=== PATIENT | male | born 1980 | race Caucasian/White ===

== ENCOUNTER 2018-09-01 13:33 | Emergency (ER) | payer OTHER, BC ==
[2018-09-01] MEDS ORDERED: PrednisoLONE 15 mg/5 ml Oral Syrup (240 ml) PO STA (14:25)
[2018-09-01] MEDS ORDERED: Artificial Tears Opht Soln OS PRN (14:28)
--- NOTE | 2018-09-01 14:28 | ED PDOC ---
HPI: General Adult Time Seen by Provider: 09/01/18 14:03 Chief Complaint (Nursing): Weakness/Neurological Deficit Chief Complaint (Provider): left facial swelling History Per: Patient History/Exam Limitations: no limitations Onset/Duration Of Symptoms: Days (x3) Current Symptoms Are (Timing): Still Present Additional Complaint(s): Alexei Alcantara is a 38 year old male, with no significant past medical history, who presents to the emergency department complaining of left facial swelling, itchy ear and trouble closing his left eye onset for x3 days. Patient states x5 days ago he began having pain to his left jaw, he saw a dentist who told him he might have a wisdom tooth coming in. He also reports a minimal headache but denies any visual changes, arm or leg numbness or weakness. No further medical complaints. PMD: Dr. Bryn Nicole Past Medical History Reviewed: Historical Data, Nursing Documentation, Vital Signs Vital Signs: Last Vital Signs Temp 98.1 F 09/01/18 13:36 Pulse 114 H 09/01/18 13:36 Resp 18 09/01/18 13:36 BP 136/77 09/01/18 13:36 Pulse Ox 99 09/01/18 13:36 - Medical History PMH: No Chronic Diseases - Surgical History Surgical History: No Surg Hx - Family History Family History: States: Unknown Family Hx - Social History Current smoker - smoking cessation education provided: No Alcohol: None Drugs: Denies - Home Medications Home Medications: Ambulatory Orders Medication Instructions Recorded Prednisolone [Millipred] 25 mg PO BID #95 tablet 09/01/18 Valacyclovir HCl [Valtrex] 1 gm PO TID #30 tablet 09/01/18 - Allergies Allergies/Adverse Reactions: Allergies Allergy/AdvReac Type Severity Reaction Status Date / Time No Known Allergies Allergy Verified 09/01/18 14:13 Review of Systems ROS Statement: Except As Marked, All Systems Reviewed And Found Negative Eyes: Negative for: Vision Change ENT: Positive for: Mouth Pain (left jaw), Other (left facial swelling, itchy ear and trouble closing left eye) Neurological: Positive for: Headache (minimal). Negative for: Weakness (arm or leg), Numbness (arm or leg) Physical Exam - Reviewed Nursing Documentation Reviewed: Yes Vital Signs Reviewed: Yes - Physical Exam Appears: Positive for: No Acute Distress Head Exam: Positive for: ATRAUMATIC, NORMAL INSPECTION, NORMOCEPHALIC Skin: Positive for: Normal Color, Warm, Dry Eye Exam: Positive for: EOMI, PERRL, Conjunctival injection (minimal to left eye) ENT: Positive for: TM Is/Are (normal), Other (No facial lesions) Neck: Positive for: Normal, Painless ROM, Supple Cardiovascular/Chest: Positive for: Regular Rate, Rhythm. Negative for: Murmur Respiratory: Positive for: Normal Breath Sounds. Negative for: Respiratory Distress Gastrointestinal/Abdominal: Positive for: Normal Exam, Soft. Negative for: Tenderness, Guarding, Rebound Back: Positive for: Normal Inspection. Negative for: L CVA Tenderness, R CVA Tenderness, Vertebral Tenderness Extremity: Positive for: Normal ROM (Upper and lower extremities). Negative for: Deformity, Swelling Neurologic/Psych: Positive for: Alert, high school football coach II-XII (intact), Oriented (x3), Cerebellar Tests (normal), Facial Droop (left facial droop with forehead affected). Negative for: Motor/Sensory Deficits, Aphasia - ECG O2 Sat by Pulse Oximetry: 99 (RA) Pulse Ox Interpretation: Normal Medical Decision Making Medical Decision Making: Time: 14:03 Initial Impression: Initial Plan: --Head w/o contras [CT] --Reevaluation 15:[address] FINDINGS: HEMORRHAGE: No intracranial hemorrhage. BRAIN: No mass effect or edema. No atrophy or chronic microvascular ischemic changes. VENTRICLES: Unremarkable. No hydrocephalus. CALVARIUM: Unremarkable. PARANASAL SINUSES: Unremarkable as visualized. No significant inflammatory changes. MASTOID AIR CELLS: Unremarkable as visualized. No inflammatory changes. OTHER FINDINGS: None. IMPRESSION: No acute intracranial abnormalities. No significant findings to account for the clinical presentation. ----- Scribe Attestation: Documented by Vazquez Giles, acting as a scribe for Zahida Healy MD. Provider Scribe Attestation: All medical record entries made by the Scribe were at my direction and personally dictated by me. I have reviewed the chart and agree that the record accurately reflects my personal performance of the history, physical exam, medical decision making, and the department course for this patient. I have also personally directed, reviewed, and agree with the discharge instructions and disposition. Disposition - Clinical Impression Clinical Impression: Al's palsy - Disposition Referrals: Ofelia Hunter MD [Medical Doctor] - Disposition Time: 16:30 Condition: STABLE Additional Instructions: FOLLOW-UP WITH PMD WITHIN 2 DAYS FOR REEVALUATION. USE EYE LUBRICANT NEEDED. Prescriptions: Prednisolone [Millipred] 25 mg PO BID #95 tablet Valacyclovir HCl [Valtrex] 1 gm PO TID #30 tablet Instructions: La's Palsy Forms: [facility] (Slovak)
[2018-09-01] MEDS ORDERED: PrednisoLONE 15 mg/5 ml Oral Syrup (240 ml) ONE (14:41)
--- NOTE | 2018-09-01 15:48 | CT ---
Date of service: 09/01/2018 PROCEDURE: CT HEAD WITHOUT CONTRAST. HISTORY: HALLMAN, Al's palsy COMPARISON: None available. TECHNIQUE: Axial computed tomography images were obtained through the head/brain without intravenous contrast. Supplemental Coronal and Sagittal projections created and reviewed. Radiation dose: Total exam DLP = 913.88 mGy-cm. This CT exam was performed using one or more of the following dose reduction techniques: Automated exposure control, adjustment of the mA and/or kV according to patient size, and/or use of iterative reconstruction technique. FINDINGS: HEMORRHAGE: No intracranial hemorrhage. BRAIN: No mass effect or edema. No atrophy or chronic microvascular ischemic changes. VENTRICLES: Unremarkable. No hydrocephalus. CALVARIUM: Unremarkable. PARANASAL SINUSES: Unremarkable as visualized. No significant inflammatory changes. MASTOID AIR CELLS: Unremarkable as visualized. No inflammatory changes. OTHER FINDINGS: None. IMPRESSION: No acute intracranial abnormalities. No significant findings to account for the clinical presentation.
[2018-09-01 16:47] VITALS: BP 114/74; PULSE 91; RESP 20; TEMP 97.9
[2018-09-04 17:45] VITALS: O2SAT 99
== END 2018-09-01 16:45 | disposition home or self-care (01) ==
LOC: H.ER 13:33
DX: G51.0 Bell's palsy (principal)